=== PATIENT | male | born 1975 | race Caucasian/White ===

== ENCOUNTER 2016-07-13 00:51 | Emergency (ER) | payer BC, OTHER ==
[2016-07-13 01:15] VITALS: BP 149/80; PULSE 90; TEMP 98.5; BMI 34.1
[2016-07-13] MEDS ORDERED: ALBUTEROL SO4 2.5/IPRATROPIUM 0.5 INH SOL 3 ML VIAL.NEB. NEB STA ×2 (01:20→01:21)
--- NOTE | 2016-07-13 01:20 | PDOC ---
History of Present Illness - General History Source: Patient, Old Records Exam Limitations: No Limitations - History of Present Illness Initial Comments: 07/13/16 01:34 The patient is a 41 year old male, former smoker, with no other significant past medical history, who presents to the emergency department today for further evaluation of SOB, headache, and dizziness since yesterday. The patient states that he was lying down and trying to sleep when he began to experience symptoms. The patient reports associated sweats, chills, and vomiting. He notes that he experienced similar symptoms one month ago. The patient denies fever, nausea, and diarrhea. The patient denies chest pain and cough PCP: Dr. Ivania Honeycutt [phone] PAST MEDICAL HISTORY: No significant history reported PAST SURGICAL HISTORY: No significant history reported FAMILY HISTORY: Father: Diabetes SOCIAL HISTORY: Quit smoking one month ago MEDICATIONS: Reviewed ALLERGIES: As per nursing notes <Ortiz Kilgore - Last Filed: 07/13/16 02:37> - General History Source: Patient <Angel Snyder - Last Filed: 07/13/16 02:47> - General Chief Complaint: Respiratory Stated Complaint: DIZZY Time Seen by Provider: 07/13/16 01:08 Past History <Ortiz Kilgore - Last Filed: 07/13/16 02:37> - Past Medical History Other medical history: denies - Psycho/Social/Smoking Cessation Hx Suicidal Ideation: No Smoking History: Unknown if ever smoked <Angel Snyder - Last Filed: 07/13/16 02:47> - Past Medical History Allergies/Adverse Reactions: Allergies Allergy/AdvReac Type Severity Reaction Status Date / Time No Known Allergies Allergy Verified 07/13/16 01:09 Home Medications: Ambulatory Orders Albuterol Sulfate Inhaler - [Ventolin HFA Inhaler -] 2 inh IH Q6H #1 inh Prednisone [Deltasone -] 40 mg PO DAILY #14 tablet 07/13/16 Review of Systems - Review of Systems Able to Perform ROS?: Yes Comments:: 07/13/16 01:35 CONSTITUTIONAL: Present: Chills, sweats Absent: fever, diaphoresis, generalized weakness, malaise, loss of appetite HEENT: Absent: rhinorrhea, nasal congestion, throat pain, throat swelling, difficulty swallowing, mouth swelling, ear pain, eye pain, visual Changes CARDIOVASCULAR: Present: Dizziness Absent: chest pain, syncope, palpitations, irregular heart rate, peripheral edema RESPIRATORY: PresentL Shortness of breath Absent: cough, dyspnea with exertion, orthopnea, wheezing, stridor, hemoptysis GASTROINTESTINAL: Absent: abdominal pain, abdominal distension, nausea, vomiting, diarrhea, constipation, melena, hematochezia GENITOURINARY: Absent: dysuria, frequency, urgency, hesitancy, hematuria, flank pain, genital pain MUSCULOSKELETAL: Absent: myalgia, arthralgia, joint swelling SKIN: Absent: rash, itching, pallor HEMATOLOGIC/IMMUNOLOGIC: Absent: easy bleeding, easy bruising, lymphadenopathy, frequent infections ENDOCRINE: Absent: unexplained weight gain, unexplained weight loss, heat intolerance, cold intolerance NEUROLOGIC: Present: headache Absent: focal weakness or paresthesias, dizziness, unsteady gait, seizure, mental status changes, bladder or bowel incontinence PSYCHIATRIC: Absent: anxiety, depression, suicidal or homicidal ideation, hallucinations. <Ortiz Kilgore - Last Filed: 07/13/16 02:37> *Physical Exam - Vital Signs Last Vital Signs Temp Pulse Resp BP Pulse Ox 98.5 F 90 18 149/80 99 07/13/16 01:10 07/13/16 01:10 07/13/16 01:10 07/13/16 01:10 07/13/16 01:10 - Physical Exam Comments: 07/13/16 01:35 GENERAL: Well developed, well nourished. Awake and alert. In no acute distress. HEENT: Normocephalic, atraumatic. PERRLA, EOMI. No conjunctival pallor. Sclera are non- icteric. Moist mucous membranes. Oropharynx is clear. NECK: Supple. Full ROM. No JVD. Carotid pulses 2+ and symmetric, without bruits. No thyromegaly. No lymphadenopathy. CARDIOVASCULAR: Regular rate and rhythm. No murmurs, rubs, or gallops. Distal pulses are 2+ and symmetric. PULMONARY: (+) Decreased breath sounds bilaterally x4 quadrants. ABDOMINAL: Soft. Non-tender. Non-distended. No rebound or guarding. No organomegaly. Normoactive bowel sounds. MUSCULOSKELETAL Normal range of motion at all joints. No bony deformities or tenderness. No CVA tenderness. EXTREMITIES: No cyanosis. No clubbing. No edema. No calf tenderness. SKIN: Warm and dry. Normal capillary refill. No rashes. No jaundice. NEUROLOGICAL: Alert, awake, appropriate. Cranial nerves 2-12 intact. No deficits to light touch and temperature in face, upper extremities and lower extremities. No motor deficits in the in face, upper extremities and lower extremities. Normoreflexic in the upper and lower extremities. Normal speech. Toes are downgoing bilaterally. Gait is normal without ataxia. PSYCHIATRIC: Cooperative. Good eye contact. Appropriate mood and affect. <Ortiz Kilgore - Last Filed: 07/13/16 02:37> - Vital Signs Last Vital Signs Temp Pulse Resp BP Pulse Ox 98.5 F 90 18 149/80 99 07/13/16 01:10 07/13/16 01:10 07/13/16 01:10 07/13/16 01:10 07/13/16 01:10 <Angel Snyder - Last Filed: 07/13/16 02:47> Heart Score/ECG Review - ECG Impressions Comment:: 07/13/16 01:48 1. ECG Impression: Normal sinus rhythm. Normal ECG. <Ortiz Kilgore - Last Filed: 07/13/16 02:37> ED Treatment Course - LABORATORY CBC & Chemistry Diagram: 07/13/16 01:20 07/13/16 01:20 - RADIOLOGY Radiograph Interpretation: 07/13/16 02:37 1. CXR Impression: No acute findings. <Ortiz Kilgore - Last Filed: 07/13/16 02:37> - LABORATORY CBC & Chemistry Diagram: 07/13/16 01:20 07/13/16 01:20 <Angel Snyder - Last Filed: 07/13/16 02:47> Medical Decision Making - Medical Decision Making 07/13/16 02:47 Dr. Snyder: The scribe's documentation has been prepared under my direction and personally reviewed by me in its entirery. I confirm that the note above accurately reflects all work, treatment, procedures, and medical decision making performed by me. <Angel Snyder - Last Filed: 07/13/16 02:47> *DC/Admit/Observation/Transfer - Attestations Scribe Attestion: 07/13/16 01:35 Documentation prepared by Ortiz Kilgore, acting as medical laboratory technologist for Angel Snyder MD. <Ortiz Kilgore - Last Filed: 07/13/16 02:37> - Discharge Dispostion Admit: No <Angel Snyder - Last Filed: 07/13/16 02:47> Diagnosis at time of Disposition: Shortness of breath - Discharge Dispostion Disposition: HOME Condition at time of disposition: Stable - Referrals Referrals: Ivania Honeycutt MD [Staff Physician] - - Patient Instructions Printed Discharge Instructions: DI for Shortness of Breath Additional Instructions: Please follow up with your primary care doctor today for re-evaluation. Take medications as directed. Return if any problems - Post Discharge Activity Work/School Note: Back to Work
[2016-07-13] MEDS ORDERED: ALBUTEROL SO4 2.5/IPRATROPIUM 0.5 INH SOL 3 ML VIAL.NEB. NEB ONE (01:30)
[2016-07-13 01:48] LABS: BASOPHIL 0.5 % (0-2.0); EOSINOPHIL 0.6 % (0-4.5); MCH 32.3 pg (25.7-33.7); MCHC 34.6 g/dl (32.0-35.9); MEAN CELL VOLUME 93.4 fl (80-96); MEAN PLT VOLUME 8.6 fl (7.5-11.1); NEUTROPHILS 53.3 % (42.8-82.8); PLATELET COUNT 178 K/MM3 (134-434); RDW 13.2 % (11.9-15.9); WHITE BLOOD COUNT 5.7 K/mm3 (4.0-10.0)
[2016-07-13 02:11] LABS: ANION GAP 15 (8-16); BILIRUBIN,TOTAL 1.3 mg/dL (0.2-1.0); CALCIUM 9.2 mg/dL (8.5-10.1); CO2 25 mmol/L (21-32); CREATININE 0.9 mg/dL (0.7-1.3); GLUCOSE,RANDOM 123 mg/dL (74-106); SGPT/ALT 50 U/L (12-78); TOT PROT 7.9 g/dl (6.4-8.2)
[2016-07-13 02:14] LABS: ALK PHOS 73 U/L (45-117); SGOT/AST 54 U/L (15-37); TROPONIN I < 0.02 ng/ml (0.00-0.05)
[2016-07-13] MEDS ORDERED: KETOROLAC TROMETHAMINE 30 MG/1 ML VIAL IVPUSH ONE (02:26)
[2016-07-13] MEDS ORDERED: KETOROLAC TROMETHAMINE 30 MG/1 ML VIAL ONE (02:27)
[2016-07-13] MEDS ORDERED: methylPREDNISolone NA SUCC 125 MG/2 ML VIAL IVPB ONE (02:43)
[2016-07-13] MEDS ORDERED: methylPREDNISolone NA SUCC 125 MG/2 ML VIAL ONE (02:46)
--- NOTE | 2016-07-13 13:58 | EKG ---
Test Reason : Blood Pressure : / mmHG Vent. Rate : 073 BPM Atrial Rate : 073 BPM P-R Int : 150 ms QRS Dur : 098 ms QT Int : 390 ms P-R-T Axes : 030 034 028 degrees QTc Int : 429 ms NORMAL SINUS RHYTHM NORMAL ECG NO PREVIOUS ECGS AVAILABLE Confirmed by NED NASCIMENTO MD ([id number]) on 07/13/2016 1:58:04 PM Referred By: Confirmed By:NED NASCIMENTO MD
== END 2016-07-13 03:00 | disposition home or self-care (01) ==
LOC: JER 00:51
PROC: 3E0F7GC Introduction of Other Therapeutic Substance into Respiratory Tract, Via Natural or Artificial Opening (ICD-10-PCS; principal; 2016-07-13)
PROC: 3E0333Z Introduction of Anti-inflammatory into Peripheral Vein, Percutaneous Approach (ICD-10-PCS; 2016-07-13)
PROC: 3E033GC Introduction of Other Therapeutic Substance into Peripheral Vein, Percutaneous Approach (ICD-10-PCS; 2016-07-13)
DX: R06.02 Shortness of breath (principal)
CPT/HCPCS: 36415; 71020-TC; 80053; 82550; 82553; 84484; 85025; 93005; 93010; 99282-25

== ENCOUNTER 2018-10-10 11:20 | Emergency (ER) | payer OTHER, BC | END 2018-10-10 12:16 | disposition home or self-care (01) | LOC: JERFT 11:20 ==

== ENCOUNTER 2020-11-12 09:16 | Emergency (ER) | payer BC, OTHER ==
[2020-11-12 09:27] VITALS: BP 131/77; PULSE 73; TEMP 98.4; BMI 36.4
== END 2020-11-12 12:25 | disposition home or self-care (01) ==
LOC: JER 09:16
DX: I80.01 Phlebitis and thrombophlebitis of superficial vessels of right lower extremity (principal)
CPT/HCPCS: 93971-TC; 99284-25